=== PATIENT | female | born 1960 | race African-American/Black ===

== ENCOUNTER 2023-04-16 19:12 | Emergency (ER) | payer OTHER ==
[2023-04-16 19:22] VITALS: BP 149/71; PULSE 77; RESP 18; TEMP 98.8; BMI 34.1
[2023-04-16 21:10] LABS: PH,URINE 6.5 (5.0-8.0); URINE APPEARANCE CLEAR; URINE BILIRUBIN NEGATIVE (NEGATIVE); URINE COLOR YELLOW; URINE GLUCOSE (UA) 3+ (NEGATIVE); URINE KETONE TRACE (NEGATIVE); URINE LEUK ESTERASE NEGATIVE (NEGATIVE); URINE NITRITE NEGATIVE (NEGATIVE); URINE PROTEIN NEGATIVE (NEGATIVE); URINE UROBILINOGEN 0.2 mg/dL (0.2-1.0)
[2023-04-16] MEDS ORDERED: SODIUM CHLORIDE 0.9% 500 ML INFUS.BAG IV ONE (21:27)
[2023-04-16] MEDS ORDERED: INSULIN (NOVOLOG) ASPART 100 UNITS/ML 10ML VIAL SQ ONE (21:29)
[2023-04-16 21:54] LABS: BASO % 0.5 % (0-2.0); EOS % 7.5 % (0-4.5); HEMATOCRIT 40.6 % (32.4-45.2); HEMOGLOBIN 12.8 GM/dL (10.7-15.3); LYMPH % 37.5 % (8-40); MCH 25.6 pg (25.7-33.7); MCHC 31.5 g/dl (32.0-36.0); MEAN CELL VOLUME 81.1 fl (80-96); MEAN PLT VOLUME 8.6 fl (7.5-11.1); MONO % 5.1 % (3.8-10.2); NEUT % 49.4 % (42.8-82.8); PLATELET COUNT 297 10^3/uL (134-434)
[2023-04-16 22:07] LABS: CHLORIDE 96 mmol/L (98-107); POTASSIUM 4.5 mmol/L (3.5-5.1); SODIUM 132 mmol/L (136-145)
[2023-04-16 22:08] LABS: CALCIUM 9.5 mg/dL (8.5-10.1)
[2023-04-16 22:09] LABS: ALBUMIN 4.1 g/dl (3.4-5.0); ANION GAP 9 MMOL/L (8-16); BLOOD UREA NITROGEN 9.3 mg/dL (7-18); CO2 27 mmol/L (21-32); MAGNESIUM 2.5 mg/dL (1.8-2.4)
[2023-04-16 22:12] LABS: CREATININE 1.3 mg/dL (0.55-1.3); SGOT/AST 21 U/L (15-37); SGPT/ALT 30 U/L (13-61)
[2023-04-16 22:14] LABS: BILIRUBIN,TOTAL 0.6 mg/dL (0.2-1); TOT PROT 7.9 g/dl (6.4-8.2)
[2023-04-16 22:15] LABS: ALK PHOS 225 U/L (45-117)
[2023-04-16 22:16] LABS: GLUCOSE,RANDOM 495 mg/dL (74-106)
[2023-04-16 23:17] LABS: CALCIUM 8.4 mg/dL (8.5-10.1)
[2023-04-16 23:18] LABS: BLOOD UREA NITROGEN 9.8 mg/dL (7-18)
[2023-04-16 23:21] LABS: CREATININE 1.1 mg/dL (0.55-1.3)
== END 2023-04-17 00:06 | disposition home or self-care (01) ==
LOC: JERFT 19:12 → JER 19:12
PROC: 3E013VG Introduction of Insulin into Subcutaneous Tissue, Percutaneous Approach (ICD-10-PCS; principal; 2023-04-16)
DX: R35.0 Frequency of micturition (principal); R07.89 Other chest pain; E11.9 Type 2 diabetes mellitus without complications
CPT/HCPCS: 36415; 80048; 80053; 81003; 82962; 83735; 84484; 85025; 87086; 87186; 93005; 93010; 96372; 99284-25

== ENCOUNTER 2023-08-11 14:00 | Emergency (ER) | payer OTHER ==
[2023-08-11] MEDS ORDERED: METOCLOPRAMIDE HCL INJECTION 10 MG/2 ML VIAL IVPB ONE (15:40)
[2023-08-11] MEDS ORDERED: SODIUM CHLORIDE 0.9% 500 ML INFUS.BAG IV ONE (15:40)
[2023-08-11] MEDS ORDERED: ACETAMINOPHEN 1000 MG/100 ML BAG IVPB ONE (15:40)
[2023-08-11] MEDS ORDERED: MECLIZINE HCL 25 MG TABLET (FP) PO ONE (15:41)
[2023-08-11 16:12] VITALS: BP 147/80; PULSE 87; RESP 18; TEMP 98.6; BMI 34.1
[2023-08-11 16:46] LABS: BASO % 0.5 % (0-2.0); EOS % 5.6 % (0-4.5); HEMATOCRIT 41.6 % (32.4-45.2); HEMOGLOBIN 13.4 GM/dL (10.7-15.3); LYMPH % 33.1 % (8-40); MCH 25.7 pg (25.7-33.7); MCHC 32.4 g/dl (32.0-36.0); MEAN CELL VOLUME 79.5 fl (80-96); MEAN PLT VOLUME 7.9 fl (7.5-11.1); MONO % 5.2 % (3.8-10.2); NEUT % 55.6 % (42.8-82.8); PLATELET COUNT 279 10^3/uL (134-434); RBC 5.23 M/mm3 (3.60-5.2); RDW 13.9 % (11.6-15.6); WHITE BLOOD COUNT 5.9 K/mm3 (4.0-10.0)
[2023-08-11] MEDS ORDERED: MECLIZINE HCL 25 MG TABLET (FP) ONE (16:46)
[2023-08-11] MEDS ORDERED: ACETAMINOPHEN INJECTION 100 ML IVPB ONE (16:46)
[2023-08-11] MEDS ORDERED: METOCLOPRAMIDE HCL INJECTION 10 MG/2 ML VIAL ONE (16:46)
[2023-08-11 16:53] LABS: INR 0.95 (0.83-1.09)
[2023-08-11 17:16] LABS: CALCIUM 10.7 mg/dL (8.5-10.1)
[2023-08-11 17:17] LABS: BLOOD UREA NITROGEN 11.6 mg/dL (7-18)
[2023-08-11 17:20] LABS: CREATININE 1.3 mg/dL (0.55-1.3)
[2023-08-11 17:22] LABS: BILIRUBIN,TOTAL 0.6 mg/dL (0.2-1); TOT PROT 7.6 g/dl (6.4-8.2)
[2023-08-11 21:46] LABS: EPI CELLS >36 /uL (0-25.1); HYALINE CASTS 4 /uL (0-3.1); URINE APPEARANCE CLOUDY; URINE BACTERIA >9,000 /uL (0-1359); URINE BILIRUBIN NEGATIVE (NEGATIVE); URINE COLOR YELLOW; URINE GLUCOSE (UA) 3+ (NEGATIVE); URINE KETONE NEGATIVE (NEGATIVE); URINE LEUK ESTERASE NEGATIVE (NEGATIVE); URINE NITRITE POSITIVE (NEGATIVE); URINE PROTEIN NEGATIVE (NEGATIVE); URINE RBC 7 /uL (0-23.9); URINE UROBILINOGEN 0.2 mg/dL (0.2-1.0)
[2023-08-11] MEDS ORDERED: CEFTRIAXONE 1,000 MG in DEXTROSE 5%-WATER - 50 ML IVPB ONE (21:56)
[2023-08-11 22:54] LABS: URINE WBC 169.1 /uL (0-25.8)
== END 2023-08-11 22:43 | disposition left against medical advice (07) ==
LOC: JER 14:00
PROC: 3E03329 Introduction of Other Anti-infective into Peripheral Vein, Percutaneous Approach (ICD-10-PCS; principal; 2023-08-11)
PROC: 3E033GC Introduction of Other Therapeutic Substance into Peripheral Vein, Percutaneous Approach (ICD-10-PCS; 2023-08-11)
PROC: 3E033GC Introduction of Other Therapeutic Substance into Peripheral Vein, Percutaneous Approach (ICD-10-PCS; 2023-08-11)
DX: R51.9 Headache, unspecified (principal); R42 Dizziness and giddiness; R10.13 Epigastric pain; R07.89 Other chest pain; N39.0 Urinary tract infection, site not specified; Z20.822 Contact with and (suspected) exposure to COVID-19
CPT/HCPCS: 0241U-QW; 36415; 70450-TC; 71046-TC-FY; 80053; 81003; 83735; 84484; 85025; 85610; 86850; 86900; 86901; 87086; 87186; 93005; 93010; 96365; 96375; 99285-25

== ENCOUNTER 2024-04-29 14:49 | Emergency (ER) | payer OTHER ==
[2024-04-29 15:04] VITALS: BP 150/80; PULSE 68; RESP 16; TEMP 98.4; BMI 36.8
== END 2024-04-29 17:24 | disposition home or self-care (01) ==
LOC: JERFT 14:49 → JER 14:49 → JERFT 17:24
DX: E11.9 Type 2 diabetes mellitus without complications (principal); Z76.0 Encounter for issue of repeat prescription
CPT/HCPCS: 82962; 99281-25